=== PATIENT | female | born 2000 | race Hispanic/Latino ===

== ENCOUNTER → 2020-03-02 | Outpatient (CLI) | payer OTHER | LOC: YCFC.O 17:10 | PROVIDERS: ATTEND Family Medicine | DX: R82.79 Other abnormal findings on microbiological examination of urine (principal) ==

== ENCOUNTER → 2020-03-23 | Outpatient (CLI) | payer OTHER | LOC: YCFC.O 16:51 | PROVIDERS: ATTEND Family Medicine | DX: O23.32 Infections of other parts of urinary tract in pregnancy, second trimester (principal); Z3A.00 Weeks of gestation of pregnancy not specified ==

== ENCOUNTER → 2020-04-23 | Outpatient (CLI) | payer OTHER ==
--- NOTE | 2020-04-24 05:32 | US ---
EXAM DESCRIPTION: OB ,Late (15-40wks): Ultrasound. CLINICAL HISTORY: 19 years Female state, incidental. Third trimester. unknown.. By medical history, EGA today is 33 weeks, 0 days, with PAULA of 11 June 2020. COMPARISON: Previous OB ultrasound not available. TECHNIQUE: Trans-pelvic scanning through the urine-filled bladder; sanford-scale, color Doppler, and M-mode sonography. FINDINGS: Single, intrauterine gestation, cephalic position. Amniotic fluid volume and MILO: Subjectively normal. Not measured. Maternal cervix internal os closed.. Placenta posterior with no evidence of previa or abruptio. heart rate by M-mode sonography 157 beats/min. limb activity observed. structural survey: Limited by size visualized three-vessel cord, cord insertion, four-chamber heart, longitudinal spine, cerebellum and cisterna magna and lateral ventricles, bilateral kidneys, urinary bladder and fluid-filled stomach. Nose/lips seen profile only. Ultrasound parameter measurements for estimating gestational age: BPD 7.7 cm 30/6 (weeks/days). Head circumference 30.2 cm 33/3. Abdominal circumference 28.8 cm 32/5. Femur length 6.4 cm 33/1. Cephalic index is below the normal range. Ultrasound parameter ratios within the normal range. Mean estimated gestational age 32 weeks 4 days, corresponding to PAULA of 14 June 2020. Estimated weight based on these measurements is 2045+/- 307 g. 4 pounds, 8 ounces 33rd percentile by medical history. Bilateral adnexa not well seen; ovaries not seen. IMPRESSION: 1. Single, living, intrauterine gestation in cephalic presentation. Amniotic fluid volume subjectively normal, and maternal cervix internal os closed. Placenta posterior with no evidence of previa. Structural survey limited by size. Please see above details. 2. Estimated gestational age by today's ultrasound examination is 32 weeks 4 days with PAULA 14 June 2020. This is 3 days younger than the estimated gestation age by medical history. 3. Estimated weight is 2045 g. 4 pounds, 8 ounces. 33rd Percentile by clinical history. Electronically signed by: Pradip Aviles MD 04/24/2020 5:30 AM CDT
== END ==
LOC: YCFC.O 14:32
PROVIDERS: ATTEND Family Medicine
DX: Z34.03 Encounter for supervision of normal first pregnancy, third trimester (principal); Z3A.32 32 weeks gestation of pregnancy; R79.89 Other specified abnormal findings of blood chemistry

== ENCOUNTER → 2020-05-08 | Outpatient (CLI) | payer OTHER | LOC: YCFC.O 14:26 | PROVIDERS: ATTEND Family Medicine | DX: O99.810 Abnormal glucose complicating pregnancy (principal); Z3A.00 Weeks of gestation of pregnancy not specified ==